=== PATIENT | female | born 1970 | race Asian ===

== ENCOUNTER 2019-05-30 10:08 | Emergency (ER) | payer MEDICAID ==
[2019-05-30] MEDS ORDERED: ASPIRIN PO ONE (10:27)
[2019-05-30 10:41] LABS: Basophils % (Auto) 0.5 % (0.0-1.8); Eosinophils # (Auto) 0.1 K/mm3 (0.0-0.4); Hematocrit 40.2 % (30.3-42.9); Hemoglobin 13.9 gm/dl (10.1-14.3); Mean Corpuscular HGB Conc 35 % (30-34); Mean Corpuscular Volume 94 fl (79-97); Monocytes # (Auto) 0.7 K/mm3 (0.0-0.8); Monocytes % (Auto) 8.6 % (0.0-7.3); Platelet Count 259 K/mm3 (140-440); Red Cell Distribution Width 12.9 % (13.2-15.2)
[2019-05-30 10:57] LABS: BUN/Creatinine Ratio 16; Blood Urea Nitrogen 13 mg/dL (7-17); Calcium 9.5 mg/dL (8.4-10.2); Hemolysis Index 3
--- NOTE | 2019-05-30 11:08 | Emergency Department Report ---
ED Chest Pain HPI - General Chief Complaint: Chest Pain Stated Complaint: CHEST/(R) LEG PAIN Time Seen by Provider: 05/30/19 11:01 Source: patient Mode of arrival: Ambulatory Limitations: No Limitations - History of Present Illness Initial Comments: Patient is 48 years old female with history of hypertension and right leg DVT on Xorelto for the last 6 month period patient presented to the ER complaining of left sided chest pain, sharp with no radiation. Patient denied any shortness of breath. She stated that she's been having cough for the last 6 week, for elective with greenish sputum. Patient denied any fever or chills. MD Complaint: chest pain -: Last night Onset: during rest Pain Location: left chest Severity: moderate Quality: sharp Consistency: intermittent Improves With: nothing Worsens With: nothing - Related Data Allergies Allergy/AdvReac Type Severity Reaction Status Date / Time No Known Allergies Allergy Unverified 05/30/19 10:10 Heart Score - HEART Score History: Slightly suspicious EKG: Normal Age: 45-65 Risk factors: 1-2 risk factors Troponin: < normal limit HEART Score: 2 - Critical Actions Critical Actions: 0-3 pts:0.9-1.7%risk of adverse cardiac event.Candidate for discharge ED Review of Systems ROS: Stated complaint: CHEST/(R) LEG PAIN Other details as noted in HPI Comment: All other systems reviewed and negative Constitutional: denies: chills, fever Respiratory: cough. denies: orthopnea, shortness of breath, SOB with exertion, SOB at rest, wheezing Cardiovascular: chest pain. denies: palpitations, dyspnea on exertion Gastrointestinal: denies: abdominal pain, nausea, vomiting, diarrhea, constipation, hematemesis, melena, hematochezia Musculoskeletal: denies: back pain Neurological: denies: headache, weakness, numbness, paresthesias, confusion, abnormal gait ED Past Medical Hx - Past Medical History Previous Medical History?: Yes Hx Hypertension: Yes Additional medical history: HIGH CHOLESTROL - Surgical History Additional Surgical History: C SECTION - Social History Smoking Status: Current Every Day Smoker Substance Use Type: None ED Physical Exam - General Limitations: No Limitations General appearance: alert, in no apparent distress - Head Head exam: Present: atraumatic, normocephalic, normal inspection - Eye Eye exam: Present: normal appearance, PERRL - ENT ENT exam: Present: normal exam, normal orophraynx, mucous membranes moist - Neck Neck exam: Present: normal inspection, full ROM. Absent: tenderness, meningismus, lymphadenopathy, thyromegaly - Respiratory Respiratory exam: Present: normal lung sounds bilaterally - Cardiovascular Cardiovascular Exam: Present: regular rate, normal rhythm, normal heart sounds - GI/Abdominal GI/Abdominal exam: Present: soft, normal bowel sounds. Absent: distended, tenderness, guarding, rebound, rigid, organomegaly, mass, bruit, pulsatile mass, hernia - Extremities Exam Extremities exam: Present: normal inspection, full ROM, normal capillary refill - Back Exam Back exam: Present: normal inspection, full ROM. Absent: CVA tenderness (R), CVA tenderness (L), muscle spasm, paraspinal tenderness, vertebral tenderness - Neurological Exam Neurological exam: Present: alert, oriented X3, CN II-XII intact, normal gait, reflexes normal - Psychiatric Psychiatric exam: Present: normal mood - Skin Skin exam: Present: warm, intact, normal color ED Course Vital Signs 05/30/19 05/30/19 10:27 10:58 Temperature 98.5 F Pulse Rate 60 Respiratory 16 Rate Blood Pressure 116/61 [Left] O2 Sat by Pulse 99 97 Oximetry ED Medical Decision Making - Lab Data Result diagrams: 05/30/19 10:31 05/30/19 10:31 - EKG Data -: EKG Interpreted by Ne EKG shows normal: sinus rhythm Rate: bradycardia - EKG Data Interpretation: no acute changes - Radiology Data Radiology results: report reviewed Chest x-ray is unremarkable. - Medical Decision Making Patient is 48 years old female with history of hypertension and right leg DVT on Xorelto for the last 6 month period patient presented to the ER complaining of left sided chest pain, sharp with no radiation. Patient denied any shortness of breath. She stated that she's been having cough for the last 6 week, for elective with greenish sputum. Patient denied any fever or chills. Patient remained asymptomatic in the ER. EKG showed sinus bradycardia no ST elevation or depression. Chest x-ray is negative for acute finding. First set of troponin is negative patient does not want to wait for the second set stating that she has an appointment at 1330. D-dimer is 157. Patient will be treated for acute bronchitis for her cough which is productive with greenish sputum with amoxicillin and advised to follow-up with her primary care physician in the next 2-3 days and to return to the ER if symptoms are not improved. Critical care attestation.: If time is entered above; I have spent that time in minutes in the direct care of this critically ill patient, excluding procedure time. ED Disposition Clinical Impression: Chest pain, Acute bronchitis Disposition: TO HOME OR SELFCARE Is pt being admited?: No Condition: Stable Instructions: Chest Pain (ED), Acute Bronchitis (ED) Referrals: PRIMARY CARE, [Referring] - 3-5 Days
[2019-05-30 11:21] LABS: INR 1.77 (0.87-1.13)
[2019-05-30 11:22] LABS: Partial Thromboplastin Time 41.9 Sec. (24.2-36.6)
--- NOTE | 2019-05-30 11:22 | XRay Report ---
CHEST 1 VIEW INDICATION: Chest Pain. COMPARISON: None FINDINGS: Support devices: None. Heart: Within normal limits. Lungs/Pleura: No acute air space or interstitial disease. Additional findings: None. IMPRESSION: No acute findings. Signer Name: Rory Espino Jr, MD Signed: 05/30/2019 11:18 AM Workstation Name: [id number]
[2019-05-30] MEDS ORDERED: ASPIRIN ONE (12:53)
[2019-05-30 12:55] VITALS: BP 112/59
== END 2019-05-30 13:05 | disposition home or self-care (01) ==
LOC: ED 10:08
DX: J20.9 Acute bronchitis, unspecified (principal); I10 Essential (primary) hypertension; E78.00 Pure hypercholesterolemia, unspecified; F17.200 Nicotine dependence, unspecified, uncomplicated; Z98.890 Other specified postprocedural states
CPT/HCPCS: 36415; 71045; 80048; 84484; 85025; 85379; 85610; 85730; 93005; 93010; 99284

== ENCOUNTER 2019-06-06 09:52 | Outpatient (CLI) | payer MEDICAID | END 2019-06-06 09:53 | disposition home or self-care (01) | LOC: LAB 09:52 | PROVIDERS: ATTEND Psychiatry & Neurology Psychiatry | DX: F41.0 Panic disorder [episodic paroxysmal anxiety] (principal); F33.2 Major depressive disorder, recurrent severe without psychotic features; I10 Essential (primary) hypertension | CPT/HCPCS: 36415; 86592 ==